=== PATIENT | male | born 1950 | race Caucasian/White ===

== ENCOUNTER 2018-12-11 23:47 | Inpatient (IN) | payer MEDICARE, MEDICAID ==
[~2018-12-11] VITALS: Ht 167.6 cm; Wt 83.0 kg
[2018-12-12 02:33] LABS: BASOPHILS % 0.9 % (0.0-2.0); EOSINOPHILS % 3.8 % (0.0-5.0); HEMATOCRIT. 39.6 % (42.0-52.0); HEMOGLOBIN. 13.6 g/dL (14.0-18.0); LYMPHOCYTES % 20.3 % (20.0-50.0); MEAN CORPUSCULAR HEMOGLOBIN 33.4 pg (28.0-32.0); MEAN CORPUSCULAR VOLUME 97.1 fL (80.0-94.0); MEAN PLATELET VOLUME 8.3 fl (7.4-10.4); MONOCYTES % 9.3 % (2.0-8.0); NEUTROPHILS % 65.7 % (40.0-76.0); PLATELET 156 x1000/uL (130-400); RED BLOOD CELL COUNT 4.07 mill/uL (4.7-6.1); RED CELL DISTRIBUTION WIDTH 15.4 % (11.6-14.6)
[2018-12-12 02:38] LABS: CHLORIDE 102 mEq/L (98-107)
[2018-12-12] MEDS ORDERED: INSU100I19 SQ (04:56)
[2018-12-12] MEDS ORDERED: ESOM20CA37 MT (04:57)
[2018-12-12] MEDS ORDERED: METO25TA6 MT (05:02)
[2018-12-12] MEDS ORDERED: CALC667C MT (05:02)
[2018-12-12] MEDS ORDERED: ATOR10TA69 MT (05:04)
[2018-12-12] MEDS ORDERED: AMLO10TA80 MT (05:04)
[2018-12-12] MEDS ORDERED: FOLI1TAB33 MT (05:06)
[2018-12-12] MEDS ORDERED: CLONIDINE 0.1MG TABLET PO ONE (08:30)
[2018-12-12 10:10] VITALS: BP 170/101
[2018-12-12 10:30] VITALS: BP 170/101
[2018-12-12] MEDS ORDERED: DEXTROSE 50% WATER 50ML SYRINGE IV PRN (10:30)
[2018-12-12] MEDS ORDERED: LORAZEPAM 0.5MG TABLET PO PRN (10:30)
[2018-12-12] MEDS ORDERED: DOCUSATE SODIUM 100MG CAPSULE PO PRN (10:30)
[2018-12-12] MEDS ORDERED: ACETAMINOPHEN 650MG SUPP PR PRN (10:30)
[2018-12-12] MEDS ORDERED: ACETAMINOPHEN 325MG TABLET PO PRN (10:30)
[2018-12-12] MEDS ORDERED: ONDANSETRON HCL 4MG/2ML INJ IV PRN (10:30)
[2018-12-12] MEDS ORDERED: CLONIDINE 0.1MG TABLET PO PRN (10:30)
[2018-12-12] MEDS ORDERED: MAGNESIUM/ALUMINUM HYDROXIDE/SIMETHICONE 30ML UDC PO PRN (10:30)
[2018-12-12] MEDS ORDERED: GUAIFENESIN 200MG/10ML SUGAR FREE UDC PO PRN (10:30)
[2018-12-12] MEDS ORDERED: IPRATROPIUM/ALBUTEROL 0.5-3(2.5)MG/3ML NEB INH PRN (10:30)
[2018-12-12] MEDS ORDERED: DIPHENHYDRAMINE 50MG/ML VIAL IV PRN (10:30)
[2018-12-12] MEDS ORDERED: HYDROCODONE/ACETAMINOPHEN 5/325MG TABLET PO PRN (10:30)
[2018-12-12 11:21] LABS: INR 1.1; PROTHROMBIN TIME 11.6 sec (9.6-11.0)
[2018-12-12] MEDS ORDERED: LEVOFLOXACIN 500MG PREMIX 100 ML IV SCH ×2 (11:30→23:00)
[2018-12-12] MEDS: LOSARTAN POTASSIUM 50 MG TABLET PO SCH (11:47)
[2018-12-12] MEDS: METRONIDAZOLE 500MG TABLET PO SCH ×2 (11:47→22:14)
[2018-12-12 12:00] VITALS: BP_SYST 191; BP_DIAS 74; BP_DIAS 94
[2018-12-12] MEDS: BLOOD SUGAR DIAGNOSTIC STRIP TEST SCH ×3 (12:40→21:00)
[2018-12-12] MEDS: INSULIN LISPRO 100 UNITS/ML SUBCUT SCH ×3 (13:10→21:00)
[2018-12-12] MEDS: AMLODIPINE 10MG TABLET PO SCH (15:21)
[2018-12-12 16:00] VITALS: BP 194/81
[2018-12-12 18:06] LABS: PROSTRATE SPECIFIC AG TOTAL 0.53 ng/mL (0.0-4.0)
[2018-12-12 22:14] VITALS: BP 125/41
[2018-12-12] MEDS: METOPROLOL TARTRATE 25MG TABLET PO SCH (22:15)
[2018-12-12] MEDS: HEPARIN 5000 UNITS/ML VIAL SUBCUT SCH (22:16)
[2018-12-13 08:00] VITALS: BP 178/78
[2018-12-13 08:13] LABS: BASOPHILS % 0.9 % (0.0-2.0); EOSINOPHILS % 4.3 % (0.0-5.0); HEMOGLOBIN. 14.3 g/dL (14.0-18.0); LYMPHOCYTES % 22.5 % (20.0-50.0); MEAN CORPUSCULAR HEMOGLOBIN 33.3 pg (28.0-32.0); MEAN CORPUSCULAR VOLUME 97.5 fL (80.0-94.0); MEAN PLATELET VOLUME 8.7 fl (7.4-10.4); MONOCYTES % 8.7 % (2.0-8.0); NEUTROPHILS % 63.6 % (40.0-76.0); PLATELET 163 x1000/uL (130-400); RED BLOOD CELL COUNT 4.31 mill/uL (4.7-6.1); RED CELL DISTRIBUTION WIDTH 15.5 % (11.6-14.6)
[2018-12-13] MEDS: BLOOD SUGAR DIAGNOSTIC STRIP TEST SCH ×3 (08:36→17:43)
[2018-12-13] MEDS ORDERED: FAMOTIDINE 20MG/2ML VIAL IV SCH (09:00)
[2018-12-13] MEDS ORDERED: CYANOCOBALAMIN 1000MCG/ML VIAL IM SCH (09:00)
[2018-12-13] MEDS: INSULIN LISPRO 100 UNITS/ML SUBCUT SCH ×3 (09:35→17:43)
[2018-12-13] MEDS: METRONIDAZOLE 500MG TABLET PO SCH (09:36)
[2018-12-13] MEDS: HEPARIN 5000 UNITS/ML VIAL SUBCUT SCH (09:36)
[2018-12-13] MEDS: METOPROLOL TARTRATE 25MG TABLET PO SCH (09:37)
[2018-12-13] MEDS: LOSARTAN POTASSIUM 50 MG TABLET PO SCH (09:38)
[2018-12-13] MEDS: AMLODIPINE 10MG TABLET PO SCH (09:38)
[2018-12-13] MEDS ORDERED: METOPROLOL TARTRATE 25MG TABLET PO NR (11:15)
[2018-12-13 11:30] LABS: CHLORIDE 102 mEq/L (98-107)
[2018-12-13 11:45] LABS: PHOSPHORUS 4.4 mg/dL (2.5-4.9)
[2018-12-13 11:47] LABS: CREATINE KINASE 209 IU/L (39-308); HDL CHOLESTEROL 34 mg/dL (40-59)
[2018-12-13 11:48] LABS: T4 FREE 1.25 ng/dL (0.76-1.46)
[2018-12-13 12:04] LABS: LDL CHOLESTEROL 95 mg/dL (5-100)
[2018-12-13 16:59] VITALS: BP 156/62
[2018-12-13] MEDS ORDERED: METOPROLOL TARTRATE 50MG TABLET PO SCH (21:00)
[2018-12-14] MEDS ORDERED: LEVOFLOXACIN 250MG PREMIX 50 ML IV SCH (23:00)
== END 2018-12-13 18:15 | disposition home or self-care (01) | DRG 391 ==
LOC: ER 23:47 → 7WST 12-12 05:52 → EDBEDREQ 12-12 05:59 → EDBEDREQTM 12-12 05:59 → EDBEDREQSVC 12-12 05:59 → ENRESERV 12-12 07:05
PROVIDERS: ADMIT Internal Medicine; ATTEND Internal Medicine
PROC: 5A1D70Z Performance of Urinary Filtration, Intermittent, Less than 6 Hours Per Day (ICD-10-PCS; principal; 2018-12-12)
PROC: 5A1D70Z Performance of Urinary Filtration, Intermittent, Less than 6 Hours Per Day (ICD-10-PCS; 2018-12-13)
DX: K52.9 Noninfective gastroenteritis and colitis, unspecified (principal); N18.6 End stage renal disease; I12.0 Hypertensive chronic kidney disease with stage 5 chronic kidney disease or end stage renal disease; D64.9 Anemia, unspecified; E11.22 Type 2 diabetes mellitus with diabetic chronic kidney disease; E11.319 Type 2 diabetes mellitus with unspecified diabetic retinopathy without macular edema; E53.8 Deficiency of other specified B group vitamins; E83.39 Other disorders of phosphorus metabolism; E83.51 Hypocalcemia; G24.9 Dystonia, unspecified; H93.19 Tinnitus, unspecified ear; R68.89 Other general symptoms and signs; N40.0 Benign prostatic hyperplasia without lower urinary tract symptoms; E11.65 Type 2 diabetes mellitus with hyperglycemia; K46.9 Unspecified abdominal hernia without obstruction or gangrene; I65.21 Occlusion and stenosis of right carotid artery; K80.20 Calculus of gallbladder without cholecystitis without obstruction; N30.20 Other chronic cystitis without hematuria; Z86.61 Personal history of infections of the central nervous system; Z86.73 Personal history of transient ischemic attack (TIA), and cerebral infarction without residual deficits; Z89.432 Acquired absence of left foot; Z99.2 Dependence on renal dialysis; Z79.899 Other long term (current) drug therapy
CPT/HCPCS: 36415; 70551; 71045; 74176; 76700; 80061; 82330; 82550; 82607; 82962; 83036; 83605; 83735; 84100; 84145; 84153; 84439; 84443; 84484; 87077; 93005; 93306; 93880; 93970; 97162; 99285; J1644; J1815; J1956; J3420; J3490; G0103